=== PATIENT | male | born 1995 | race Caucasian/White ===

== ENCOUNTER 2017-08-29 00:11 | Emergency (ER) | payer OTHER ==
[~2017-08-29] VITALS: Ht 188 cm; Wt 79.5 kg
[2017-08-29 00:16] VITALS: TEMP 37; Ht 188 cm; Wt 79.5 kg
[2017-08-29 00:22] VITALS: O2SAT 98
--- NOTE | 2017-08-29 07:09 | EMERGENCY ROOM VISIT NOTE ---
History Report prepared by Leticiaibshaheed: Shawnee Yusuf Under the Supervision of: Dr. Esthela Truong M.D. First contact with patient: 00:19 Chief Complaint: ALCOHOL OVERDOSE Stated Complaint: ALCOHOL OVERDOSE Nursing Triage Summary: Patient presents [facility] for evaluation of alcohol overdose. Patient was found by PD with an unsteady gait. Denies any complaints. Admits to drinking to ETOH tonight. History of Present Illness The patient is a 22 year old male who presents to the Emergency Room with complaints of an episode of alcohol overdose occurring prior to arrival. The patient states that he has been drinking, but isn't "trashed." He reports that the lpc brought him in and that he was tackled due to his poor attitude with the police. He denies using anything other than alcohol, falling, and recent trauma. Source of History: patient Onset: prior to arrival Position: other (global) Quality: other (global) Timing: other (episode) Note: He denies using anything other than alcohol, falling, and recent trauma. Review of Systems See HPI for pertinent positives & negatives. A total of 10 systems reviewed and were otherwise negative. Past Medical & Surgical Medical Problems: (1) No Known Active Medical Problems Family History Patient reports no known family medical history. Social History Smoking Status: Current Every Day Smoker Alcohol Use: occasionally Drug Use: none Marital Status: single Housing Status: lives with roommate Occupation Status: [employer] student Current/Historical Medications No Active Prescriptions or Reported Meds Allergies Coded Allergies: No Known Allergies (Unverified , 08/29/17) Physical Exam Vital Signs Date Time Temp Pulse Resp B/P (MAP) Pulse Ox O2 Delivery O2 Flow Rate FiO2 08/29/17 06:51 102 08/29/17 06:10 75 18 92/46 98 Room Air 08/29/17 05:14 72 18 94/52 98 Room Air 08/29/17 04:15 85 08/29/17 01:33 105 18 122/51 98 Room Air 08/29/17 00:22 98 Room Air 08/29/17 00:18 119 08/29/17 00:16 37.0 115 18 117/64 98 Room Air Physical Exam Vital signs reviewed. General: Odor of EtOH in the breath, disheveled 22-year-old male. No signs of trauma. HEENT: Mild scleral injection bilaterally, PERRLA, neck supple, dry mucous membranes. Cardiovascular: Regular rate and rhythm, no extra sounds. Pulmonary: Clear to auscultation bilaterally, normal work of breathing. Abdomen: Soft, nontender, nondistended, positive bowel sounds. Musculoskeletal: Upper and lower extremities atraumatic, no peripheral edema Skin: Warm, dry, no rash. Atraumatic. Neurologic: Patient is currently verbal. Medical Decision & Procedures Laboratory Results Test 08/29/17 00:50 Ethyl Alcohol mg/dL 309.0 mg/dl (0-3) Laboratory results per my review. ED Course 0021: Past medical records reviewed. The patient was evaluated in room A12B. A complete history and physical examination was performed. 0710: The patient was d/c to a sober friend. Medical Decision The differential diagnosis of the patient's presentation includes alcohol ingestion, illicit drug use, trauma, and dehydration. This patient was evaluated and appeared to be in no significant distress. Patient is visibly intoxicated and obviously agitated. He was observed on the potline monitor with aspiration precautions maintained. Blood alcohol is 309. The patient was observed in the emergency department for multiple hours. On my reevaluation, the patient is awake and talking. He is able to call a ride. Patient was advised of the findings and discharged to the care of a sober friend. He will follow-up with [facility] and return to the ER for worsening of symptoms or any medical concerns. Impression Primary Impression: Alcoholic intoxication Scribe Attestation The scribe's documentation has been prepared under my direction and personally reviewed by me in its entirety. I confirm that the note above accurately reflects all work, treatment, procedures, and medical decision making performed by me. Departure Information Dispostion Still a Patient Prescriptions No Active Prescriptions or Reported Meds Forms HOME CARE DOCUMENTATION FORM, IMPORTANT VISIT INFORMATION Patient Instructions My [facility] Additional Instructions Diagnosis: Alcohol intoxication Follow-up with [facility] as directed. Drink plenty of clear liquids, such as water or Gatorade. Tylenol 650 mg every 6 hours as needed for pain. Avoid excessive alcohol consumption. Return to emergency for worsening of symptoms or medical concerns.
[2017-08-29 07:32] VITALS: BP 103/60; PULSE 105; O2SAT 99
== END 2017-08-29 07:33 | disposition home or self-care (01) ==
LOC: C.EDA 00:13
DX: F10.129 Alcohol abuse with intoxication, unspecified (principal); F17.210 Nicotine dependence, cigarettes, uncomplicated